=== PATIENT | female | born 1960 | race Caucasian/White ===

== ENCOUNTER → 2019-03-20 | Outpatient (CLI) | payer OTHER | END | disposition home or self-care (01) | LOC: CFH 14:18 | PROVIDERS: ATTEND Family Medicine | DX: Z12.31 Encounter for screening mammogram for malignant neoplasm of breast (principal) | CPT/HCPCS: 77063; 77067 ==

== ENCOUNTER 2019-03-31 11:33 | Outpatient (CLI) | payer OTHER ==
[2019-03-31 12:08] LABS: ALBUMIN 4.3 g/dL (3.4-5.0); ANION GAP 6 mmol/L (5-15); CALCIUM 9.2 mg/dL (8.5-10.1); CHLORIDE 106 mmol/L (98-107); MICROSCOPIC AUTO
[2019-03-31 12:11] LABS: BASOPHILS # (AUTO) 0.04 x10^3/uL (0-0.1); BASOPHILS % (AUTO) 1 % (0-1); EOSINOPHILS # (AUTO) 0.43 x10^3/uL (0-0.4); EOSINOPHILS % (AUTO) 5 % (1-7); LYMPHOCYTES # (AUTO) 2.53 x10^3/uL (1-3.4); LYMPHOCYTES % (AUTO) 28 % (22-44); MD NO; MEAN CORPUSCULAR HEMOGLOBIN 31.6 pg (27.0-34.8); MEAN CORPUSCULAR HGB CONC 33.1 g/dL (32.4-35.8); MEAN CORPUSCULAR VOLUME 95.5 fL (80-100); MEAN PLATELET VOLUME 8.8 fL (7.4-10.4); MONOCYTES # (AUTO) 0.57 x10^3/uL (0.2-0.8); MONOCYTES % (AUTO) 6 % (2-9); NEUTROPHILS # (AUTO) 5.45 x10^3/uL (1.8-6.8); NEUTROPHILS % (AUTO) 60 % (42-75); PLATELET COUNT 284 x10^3/uL (130-400); RED CELL DISTRIBUTION WIDTH 12.4 % (9.6-15.2)
[2019-03-31 12:17] LABS: ALANINE AMINOTRANSFERASE 44 U/L (12-78); ALKALINE PHOSPHATASE 94 U/L (45-117); BILIRUBIN,TOTAL 1.1 mg/dL (0.2-1.0); CHOL/HDL RATIO 3.7; CHOLESTEROL, TOTAL 220 mg/dL (140-239); CREATININE 0.95 mg/dL (0.55-1.02); FREE T4 (FREE THYROXINE) 1.19 ng/dL (0.76-1.46); HDL CHOL % 27 % (28-40); HDL CHOLESTEROL (DIRECT) 60 mg/dL (40-60); LDL CHOLESTEROL,CALCULATED 130 mg/dL (54-169); LDL/HDL RATIO 2.2 (0.5-3.0); TOTAL PROTEIN 8.2 g/dL (6.4-8.2); TRIGLYCERIDES 149 mg/dL (50-200); VLDL CHOLESTEROL 30 mg/dL (0-25)
== END 2019-03-31 23:59 | disposition home or self-care (01) ==
LOC: LAB 11:33
PROVIDERS: ATTEND Nurse Practitioner Family
DX: E03.9 Hypothyroidism, unspecified (principal); E55.9 Vitamin D deficiency, unspecified; Z80.8 Family history of malignant neoplasm of other organs or systems
CPT/HCPCS: 36415; 80053; 80061; 81001; 82306; 84439; 84443; 85025; 86304

== ENCOUNTER 2019-04-12 09:08 | Outpatient (CLI) | payer OTHER | END 2019-04-12 23:59 | disposition home or self-care (01) | LOC: CFH 09:08 | PROVIDERS: ATTEND Nurse Practitioner Family | DX: R10.9 Unspecified abdominal pain (principal) | CPT/HCPCS: 76770 ==

== ENCOUNTER 2019-11-14 09:38 | Observation (INO) | payer OTHER ==
[~2019-11-14] VITALS: Ht 167.6 cm; Wt 73.3 kg
[2019-11-14] MEDS ORDERED: ASPIRIN 81 MG TABLET CHEW ONE (10:27)
[2019-11-14] MEDS ORDERED: SODIUM CHLORIDE FLUSH 10ML SYR IVF ONE (10:30)
[2019-11-14] MEDS ORDERED: ASPIRIN 81 MG TABLET CHEW PO ONE (10:30)
--- NOTE | 2019-11-14 10:34 | NUR ---
MEDICATED PER EMAR (162MG OF ASA) LAB AT BEDSIDE AT 1025 CXR AT BEDSIDE AT 1033
[2019-11-14 10:35] LABS: BASOPHILS # (AUTO) 0.06 x10^3/uL (0-0.1); BASOPHILS % (AUTO) 1 % (0-1); EOSINOPHILS # (AUTO) 0.35 x10^3/uL (0-0.4); EOSINOPHILS % (AUTO) 5 % (1-7); LYMPHOCYTES # (AUTO) 1.99 x10^3/uL (1-3.4); LYMPHOCYTES % (AUTO) 28 % (22-44); MD NO; MEAN CORPUSCULAR HEMOGLOBIN 31.4 pg (27.0-34.8); MEAN CORPUSCULAR HGB CONC 34.1 g/dL (32.4-35.8); MEAN CORPUSCULAR VOLUME 92.2 fL (80-100); MEAN PLATELET VOLUME 8.9 fL (7.4-10.4); MONOCYTES # (AUTO) 0.54 x10^3/uL (0.2-0.8); MONOCYTES % (AUTO) 8 % (2-9); NEUTROPHILS % (AUTO) 59 % (42-75); PLATELET COUNT 264 x10^3/uL (130-400); RED BLOOD COUNT 5.03 x10^6/uL (3.82-5.3); RED CELL DISTRIBUTION WIDTH 12.5 % (9.6-15.2)
[2019-11-14 10:47] LABS: ANION GAP 7 mmol/L (5-15); CALCIUM 9.4 mg/dL (8.5-10.1); CHLORIDE 108 mmol/L (98-107); CREATININE 0.93 mg/dL (0.55-1.02)
[2019-11-14 10:50] LABS: TROPONIN I < 0.015 ng/mL (0.000-0.045)
[2019-11-14] MEDS ORDERED: LEVO75TA PO (10:54)
--- NOTE | 2019-11-14 10:54 | NUR ---
TASK RN NOTE: PT PRESENTS TO ED WITH C/O INTERMITTENT BILATERAL UPPER CHEST PRESSURE X 1 MONTH, SOB WITH EXERTION X 2 WEEKS, INCREASED CHEST PRESSURE SINCE LAST NIGHT. PT STATES PAIN TRAVELS TO EPIGASTRIC REGION, ASSOCIATED SX NAUSEA. PT RATES CHEST PRESSURE AT 1/10 AT THIS TIME, REPORTS MILD NAUSEA, DENIES SOB. ALL MONITORS ATTACHED, PIV PLACED, EKG TAKEN IN TRIAGE. PT IS NSR ON EXAMINING CHAIR ASSEMBLER, RATE 70'S WITH NO ECTOPY. REPORT GIVEN TO LONNIE MEDINA.
[2019-11-14] MEDS ORDERED: MAALOX/HYOSCYAMINE/LIDOCAINE 45 ML BTL ONE (11:21)
--- NOTE | 2019-11-14 11:27 | NUR ---
MEDICATED PER EMAR (GI COCKTAIL) VSS ON LEGAL SERVICES MANAGER PATIENT INSISTENT ON GOING HOME-PROVIDER MADE AWARE
[2019-11-14] MEDS ORDERED: MAALOX/HYOSCYAMINE/LIDOCAINE 45 ML BTL PO ONE ×2 (11:30)
--- NOTE | 2019-11-14 12:15 | NUR ---
WITH REASSESSMENT PATIENT REPORTS NAUSEA/CP IMPROVED VSS ON DRAFTING TEACHER ECG DEPARTMENT CALLED TO DETERMINE ESTIMATED TIME OF STRESS TEST- SHINGLE TRIMMER SOMETIME AT 8AM 11/15/19
[2019-11-14] MEDS ORDERED: NITROGLYCERIN OINT 2%, 1GM TP ONE (12:30)
[2019-11-14] MEDS ORDERED: NITROGLYCERIN 0.4 MG/SPRAY SL PRN (13:00)
[2019-11-14] MEDS ORDERED: NITROGLYCERIN 0.4 MG BOTTLE (25 TABS) SL PRN (13:00)
[2019-11-14] MEDS ORDERED: ACETAMINOPHEN 325 MG TABLET PO PRN (13:00)
[2019-11-14] MEDS ORDERED: BACLOFEN 10 MG TABLET PO PRN (13:00)
[2019-11-14] MEDS ORDERED: morphine SULFATE 10 MG/ML, 1ML IV PRN (13:00)
[2019-11-14] MEDS ORDERED: morphine SULFATE 10 MG/ML, 1ML IVPush PRN (13:00)
[2019-11-14] MEDS ORDERED: MAALOX/HYOSCYAMINE/LIDOCAINE 45 ML BTL PO PRN (13:00)
[2019-11-14 13:29] LABS: ALBUMIN 3.9 g/dL (3.4-5.0); BILIRUBIN, DIRECT 0.2 mg/dL (0.1-0.2)
[2019-11-14 13:30] LABS: BILIRUBIN,INDIRECT 0.8 mg/dL (0.0-2.0); TOTAL PROTEIN 8.4 g/dL (6.4-8.2)
[2019-11-14 13:46] LABS: CHOL/HDL RATIO 3.8; LDL/HDL RATIO 2.3 (0.5-3.0)
[2019-11-14 14:14] LABS: FREE T4 (FREE THYROXINE) 1.6 ng/dL (0.76-1.46)
--- NOTE | 2019-11-14 14:49 | NUR ---
provided with Cardiac diet tray for lunch Moved to hospital bed Updated pn poc-awaiting admit bed Vss on cardiac exercise specialist, remains asymptomatic
--- NOTE | 2019-11-14 15:35 | NUR ---
DR. SCHRADER MADE AWARE OF D-DIMER AND IF HE THOUGHT CTA NECCESITATED. DR. DAILEY CONSIDERING PLAN
[2019-11-14] MEDS ORDERED: PROMETHAZINE 25 MG/ML, 1ML ONE (15:37)
--- NOTE | 2019-11-14 15:43 | NUR ---
CT called to attempt to fit patient in prior to transfer upstairs. CT quite busy with high acuity patients. More than likely will have to have CTA after admission
--- NOTE | 2019-11-14 16:14 | NUR ---
TO CT SCAN (CTA PERFORMED)
[2019-11-14] MEDS ORDERED: OMNIPAQUE 350 MG/ML, 100ML BOTTLE ONE (16:29)
[2019-11-14] MEDS: PANTOPROZOLE 40MG TABLET PO SCH (17:05)
[2019-11-14 17:33] VITALS: BP 116/78
[2019-11-14 19:19] LABS: TROPONIN I < 0.015 ng/mL (0.000-0.045)
[2019-11-14 19:46] VITALS: BP 137/88
[2019-11-14] MEDS: SODIUM CHLORIDE FLUSH 10ML SYR IVF SCH (20:23)
[2019-11-15 01:22] LABS: TROPONIN I < 0.015 ng/mL (0.000-0.045)
[2019-11-15 01:39] VITALS: BP 109/77
[2019-11-15] MEDS: PANTOPROZOLE 40MG TABLET PO SCH (05:48)
[2019-11-15] MEDS ORDERED: LEVOTHYROXINE 75 MCG TABLET PO SCH (06:00)
[2019-11-15] MEDS ORDERED: ASPIRIN 325 MG TABLET EC PO SCH (06:00)
[2019-11-15] MEDS: SODIUM CHLORIDE FLUSH 10ML SYR IVF SCH (07:23)
[2019-11-15 08:25] VITALS: BP 102/70
[2019-11-15] MEDS ORDERED: PANT40TA5 PO (10:57)
[2019-11-15] MEDS ORDERED: CALC200T3 PO (10:57)
== END 2019-11-15 11:45 | disposition home or self-care (01) ==
LOC: ED 12:05 → INTOOBSV 12:25 → EDIP 12:25 → SUATTDRO 12:28 → 5SO 16:29 → DCLOUNGE 11-15 11:30
PROVIDERS: ADMIT Hospitalist; ATTEND Hospitalist
DX: R07.89 Other chest pain (principal); R06.00 Dyspnea, unspecified; E03.9 Hypothyroidism, unspecified; R10.13 Epigastric pain; R06.02 Shortness of breath; Z79.899 Other long term (current) drug therapy
CPT/HCPCS: 36415; 71045; 71275; 80048; 80061; 80076; 82040; 83880; 84439; 84443; 84484; 85025; 85379; 93005; 93017; 99285; G0378; Q9967

== ENCOUNTER 2020-01-18 15:15 | Outpatient (CLI) | payer OTHER ==
[~2020-01-18 15:15] MED LIST: CALC200T3 PO; LEVO75TA PO; PANT40TA5 PO
== END 2020-01-18 23:59 | disposition home or self-care (01) ==
LOC: CVU 15:15
PROVIDERS: ATTEND Internal Medicine Cardiovascular Disease
DX: I34.0 Nonrheumatic mitral (valve) insufficiency (principal); E78.00 Pure hypercholesterolemia, unspecified; E78.5 Hyperlipidemia, unspecified
CPT/HCPCS: 93306

== ENCOUNTER → 2020-03-08 | Outpatient (CLI) | payer OTHER ==
[2020-03-08 10:48] LABS: ALBUMIN 3.6 g/dL (3.4-5.0); ANION GAP 7 mmol/L (5-15); CHLORIDE 107 mmol/L (98-107)
[2020-03-08 10:57] LABS: ALANINE AMINOTRANSFERASE 139 U/L (12-78); ALKALINE PHOSPHATASE 86 U/L (45-117); BILIRUBIN,TOTAL 1.5 mg/dL (0.2-1.0); CHOL/HDL RATIO 3.6; CHOLESTEROL, TOTAL 202 mg/dL (140-239); CREATININE 0.83 mg/dL (0.55-1.02); FREE T4 (FREE THYROXINE) 1.48 ng/dL (0.76-1.46); HDL CHOL % 28 % (28-40); HDL CHOLESTEROL (DIRECT) 56 mg/dL (40-60); LDL CHOLESTEROL,CALCULATED 126 mg/dL (54-169); LDL/HDL RATIO 2.3 (0.5-3.0); TOTAL PROTEIN 7.6 g/dL (6.4-8.2); TRIGLYCERIDES 102 mg/dL (50-200); VLDL CHOLESTEROL 20 mg/dL (0-25)
== END | disposition home or self-care (01) ==
LOC: LAB 10:25
PROVIDERS: ATTEND Nurse Practitioner Family
DX: R94.5 Abnormal results of liver function studies (principal); E03.9 Hypothyroidism, unspecified; E78.00 Pure hypercholesterolemia, unspecified; R07.9 Chest pain, unspecified; R79.89 Other specified abnormal findings of blood chemistry; E78.5 Hyperlipidemia, unspecified; Z82.49 Family history of ischemic heart disease and other diseases of the circulatory system
CPT/HCPCS: 36415; 80053; 80061; 84439; 84443; 85379

== ENCOUNTER → 2020-03-25 | Outpatient (CLI) | payer OTHER | END | disposition home or self-care (01) | LOC: CFH 09:02 | PROVIDERS: ATTEND Nurse Practitioner Family | DX: R94.5 Abnormal results of liver function studies (principal); Z90.49 Acquired absence of other specified parts of digestive tract | CPT/HCPCS: 76700 ==

== ENCOUNTER → 2020-04-30 | Outpatient (CLI) | payer OTHER | END | disposition home or self-care (01) | LOC: CFH 12:29 | PROVIDERS: ATTEND Nurse Practitioner Family | DX: Z12.31 Encounter for screening mammogram for malignant neoplasm of breast (principal) | CPT/HCPCS: 77063; 77067 ==

== ENCOUNTER → 2020-05-01 | Outpatient (CLI) | payer OTHER | END | disposition home or self-care (01) | LOC: RAD 10:05 | PROVIDERS: ATTEND Internal Medicine | DX: K76.89 Other specified diseases of liver (principal); R74.8 Abnormal levels of other serum enzymes; R94.5 Abnormal results of liver function studies; Z90.49 Acquired absence of other specified parts of digestive tract | CPT/HCPCS: 74181 ==

== ENCOUNTER 2020-06-10 14:58 | Outpatient (CLI) | payer OTHER ==
[~2020-06-10 14:58] MED LIST changes: -PANT40TA5 PO; +PANT40TA6 PO
[2020-06-10 15:32] LABS: IRON LEVEL 139 mcg/dL (50-170)
[2020-06-10 15:33] LABS: % IRON SATURATION 41 % (20-55); TOTAL IRON BINDING CAPACITY 335 mcg/dL (250-450)
== END 2020-06-10 23:59 | disposition home or self-care (01) ==
LOC: LAB 14:58
PROVIDERS: ATTEND Internal Medicine
DX: R74.8 Abnormal levels of other serum enzymes (principal)
CPT/HCPCS: 36415; 82103; 82104; 82390; 83516; 83540; 83550; 86038; 86704; 86706; 86708; 86803; 87340

== ENCOUNTER → 2020-10-26 | Outpatient (CLI) | payer OTHER ==
[2020-10-26 11:36] LABS: ALANINE AMINOTRANSFERASE 57 U/L (12-78); ANION GAP 5 mmol/L (5-15); CALCIUM 9.1 mg/dL (8.5-10.1); CHLORIDE 110 mmol/L (98-107); CHOLESTEROL, TOTAL 216 mg/dL (140-239); CREATININE 0.92 mg/dL (0.55-1.02)
[2020-10-26 11:47] LABS: ALKALINE PHOSPHATASE 90 U/L (45-117); BILIRUBIN,TOTAL 1.3 mg/dL (0.2-1.0); CHOL/HDL RATIO 3.8; HDL CHOL % 26 % (28-40); HDL CHOLESTEROL (DIRECT) 57 mg/dL (40-60); LDL CHOLESTEROL,CALCULATED 132 mg/dL (54-169); LDL/HDL RATIO 2.3 (0.5-3.0); TOTAL PROTEIN 7.8 g/dL (6.4-8.2); TRIGLYCERIDES 134 mg/dL (50-200); VLDL CHOLESTEROL 27 mg/dL (0-25)
== END | disposition home or self-care (01) ==
LOC: LAB 11:06
PROVIDERS: ATTEND Family Medicine
DX: E03.9 Hypothyroidism, unspecified (principal); E78.5 Hyperlipidemia, unspecified; R94.5 Abnormal results of liver function studies
CPT/HCPCS: 36415; 80053; 80061; 84443